=== PATIENT | female | born 2000 | race Caucasian/White ===

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

== ENCOUNTER 2021-04-30 14:40 | Emergency (ER) | payer OTHER ==
[2021-04-30 15:33] VITALS: BP 138/71; PULSE 89; TEMP 97.8
== END 2021-04-30 17:15 | disposition home or self-care (01) ==
LOC: FER 14:40
DX: L73.2 Hidradenitis suppurativa (principal)
CPT/HCPCS: 99283-25

== ENCOUNTER 2021-05-04 09:16 | Emergency (ER) | payer OTHER ==
[2021-05-04 09:22] VITALS: BP 130/81; PULSE 106; TEMP 98.9
[2021-05-04] MEDS ORDERED: LIDOCAINE 1%/EPI 1:100000 (20 ML MULTI DOSE VIAL) ONE (10:07)
[2021-05-04] MEDS ORDERED: LIDOCAINE 1%/EPI 1:100000 (20 ML MULTI DOSE VIAL) PNB ONE (10:31)
== END 2021-05-04 11:15 | disposition home or self-care (01) ==
LOC: JER 09:16
PROC: 0X950ZX Drainage of Left Axilla, Open Approach, Diagnostic (ICD-10-PCS; principal; 2021-05-04)
DX: L02.412 Cutaneous abscess of left axilla (principal)
CPT/HCPCS: 10060; 87070; 87205; 99284-25

== ENCOUNTER 2021-05-06 11:13 | Emergency (ER) | payer OTHER ==
[2021-05-06 11:18] VITALS: BP 151/89; PULSE 89; TEMP 97.8
== END 2021-05-06 12:33 | disposition home or self-care (01) ==
LOC: JERFT 11:13
DX: L02.412 Cutaneous abscess of left axilla (principal)
CPT/HCPCS: 99281-25

== ENCOUNTER 2022-11-25 15:54 | Inpatient (IN) | payer OTHER ==
[2022-11-25 16:21] VITALS: BMI 30.9
[2022-11-25] MEDS ORDERED: CLINDAMYCIN IVPB 300 MG in DEXTROSE 5%-WATER - 48 ML IVPB ONE (16:59)
[2022-11-25 17:24] LABS: BASO % 0.4 % (0-2.0); EOS % 0.2 % (0-4.5); HEMATOCRIT 37.3 % (32.4-45.2); HEMOGLOBIN 12.9 GM/dL (10.7-15.3); MCH 29.2 pg (25.7-33.7); MCHC 34.5 g/dl (32.0-36.0); MEAN CELL VOLUME 84.5 fl (80-96); MEAN PLT VOLUME 7.4 fl (7.5-11.1); MONO % 6.5 % (3.8-10.2); NEUT % 62.9 % (42.8-82.8); PLATELET COUNT 384 10^3/uL (134-434); RBC 4.42 M/mm3 (3.60-5.2); WHITE BLOOD COUNT 9.3 K/mm3 (4.0-10.0)
[2022-11-25 17:57] LABS: POTASSIUM 5.6 mmol/L (3.5-5.1)
[2022-11-25 17:59] LABS: ALBUMIN 3.5 g/dl (3.4-5.0); BLOOD UREA NITROGEN 10.4 mg/dL (7-18); CALCIUM 9.2 mg/dL (8.5-10.1)
[2022-11-25 18:01] LABS: CREATININE 0.7 mg/dL (0.55-1.3)
[2022-11-25 18:04] LABS: BILIRUBIN,TOTAL 0.4 mg/dL (0.2-1); TOT PROT 8.4 g/dl (6.4-8.2)
[2022-11-25 18:40] LABS: INR 1.06 (0.83-1.09); PROTHROMBIN TIME (PATIENT) 12.3 SEC (9.7-13.0)
[2022-11-25 18:43] LABS: ACTIVATED PTT 29.1 SECONDS (25.2-36.5)
[2022-11-26] MEDS: CLINDAMYCIN 600MG PREMIX IVPB 600 MG/50 ML BAG IVPB SCH ×2 (12:53→17:21)
[2022-11-26] MEDS: ACETAMINOPHEN 325 MG TABLET (FP) PO PRN ×2 (14:43→21:33)
[2022-11-26] MEDS ORDERED: VANCOMYCIN/WATER FOR INJ (PEG) 1,000 MG/200 ML BAG IVPB SCH (18:00)
[2022-11-26] MEDS: CEFTRIAXONE 1 GM in DEXTROSE 5%-WATER - 50 ML IVPB SCH (18:49)
[2022-11-26] MEDS: SPIRONOLACTONE 25 MG TABLET PO SCH (21:34)
[2022-11-26] MEDS ORDERED: PATIENT'S OWN MEDICATION (NON-FORMULARY) (Omadacycline Tosylate [Nuzyra] 150 MG Tablet) PO SCH (22:00)
[2022-11-27] MEDS: VANCOMYCIN 1 GRAM (PRE-DOCKED) 1,000 MG/250 ML BAG IVPB SCH ×2 (09:23→20:18)
[2022-11-27] MEDS ORDERED: ETHINYL ESTRADIOL PO SCH (10:00)
[2022-11-27] MEDS ORDERED: [UNRECOGNIZED DRUG - OTHER] PO SCH (10:00)
[2022-11-27] MEDS ORDERED: DROSPIRENONE PO SCH (10:00)
[2022-11-27] MEDS: SPIRONOLACTONE 25 MG TABLET PO SCH ×2 (10:26→22:53)
[2022-11-27] MEDS: ACETAMINOPHEN 325 MG TABLET (FP) PO PRN (10:26)
[2022-11-27] MEDS: ENOXAPARIN NA (PORCINE) 40 MG/0.4 ML DISP.SYRIN SQ SCH (10:28)
[2022-11-27] MEDS: CEFTRIAXONE 1 GM in DEXTROSE 5%-WATER - 50 ML IVPB SCH (10:31)
[2022-11-27 11:45] LABS: BASO % 0.3 % (0-2.0); EOS % 0.4 % (0-4.5); HEMATOCRIT 37.9 % (32.4-45.2); HEMOGLOBIN 12.9 GM/dL (10.7-15.3); LYMPH % 31.4 % (8-40); MCH 29.5 pg (25.7-33.7); MCHC 33.9 g/dl (32.0-36.0); MEAN CELL VOLUME 86.9 fl (80-96); MEAN PLT VOLUME 7.8 fl (7.5-11.1); MONO % 7.5 % (3.8-10.2); NEUT % 60.4 % (42.8-82.8); PLATELET COUNT 374 10^3/uL (134-434); RBC 4.36 M/mm3 (3.60-5.2); WHITE BLOOD COUNT 8.6 K/mm3 (4.0-10.0)
[2022-11-27 12:04] LABS: POTASSIUM 4.2 mmol/L (3.5-5.1)
[2022-11-27 12:07] LABS: ALBUMIN 3.6 g/dl (3.4-5.0); CALCIUM 9.1 mg/dL (8.5-10.1)
[2022-11-27 12:08] LABS: BLOOD UREA NITROGEN 10.1 mg/dL (7-18)
[2022-11-27 12:10] LABS: CREATININE 0.7 mg/dL (0.55-1.3)
[2022-11-27 12:12] LABS: BILIRUBIN,TOTAL 0.4 mg/dL (0.2-1); TOT PROT 8.1 g/dl (6.4-8.2)
[2022-11-27 18:18] VITALS: RESP 18
[2022-11-28] MEDS: VANCOMYCIN 1 GRAM (PRE-DOCKED) 1,000 MG/250 ML BAG IVPB SCH (05:46)
[2022-11-28 06:17] VITALS: PULSE 89
[2022-11-28] MEDS: SPIRONOLACTONE 25 MG TABLET PO SCH (09:44)
[2022-11-28] MEDS ORDERED: FINASTERIDE 5 MG TABLET (FP) PO SCH (10:00)
[2022-11-28] MEDS: ENOXAPARIN NA (PORCINE) 40 MG/0.4 ML DISP.SYRIN SQ SCH (10:20)
[2022-11-28] MEDS: CEFTRIAXONE 1 GM in DEXTROSE 5%-WATER - 50 ML IVPB SCH (10:20)
[2022-11-28 15:14] VITALS: BP 120/76; TEMP 99.1
== END 2022-11-28 15:49 | disposition home or self-care (01) | DRG 385 ==
LOC: JER 15:54 → JERBED 16:06 → UNDOADMIN 16:06 → JERBED 18:55 → J5S 11-26 10:57
PROVIDERS: ADMIT Internal Medicine; ATTEND Internal Medicine
PROC: 0H9T3ZX Drainage of Right Breast, Percutaneous Approach, Diagnostic (ICD-10-PCS; principal; 2022-11-27)
DX: N61.1 Abscess of the breast and nipple (principal); I10 Essential (primary) hypertension; L73.2 Hidradenitis suppurativa
CPT/HCPCS: 36415; 76642-TC-RT; 80053; 84703; 85025; 85610; 85730; 86850; 86900; 86901; 87040; 87070; 87186; 87205; 93005; 93010; 99285-25